=== PATIENT | female | born 1955 | race Caucasian/White ===

== ENCOUNTER 2017-04-19 22:42 | Emergency (ER) | payer BC ==
[2017-04-19 22:49] VITALS: BMI 27.1
[2017-04-19] MEDS ORDERED: NS 1000 ML 1,000 ML ONE (23:19)
[2017-04-19] MEDS ORDERED: NS 1000 ML 1,000 ML IV ONE ×2 (23:19→23:28)
--- NOTE | 2017-04-19 23:38 | DR.EXTPAIN ---
HPI - Time seen Time seen: 23:31 - PCP Primary Care Physician: VINAY - Complaint/Symptoms Chief Complaint Doctor Comments: Patient states she was walking and slipped on gravel and fell landing on her right arm and she heard it pop with severe pain in her right arm and shoulder with her being unable to elevate her right arm. She denies chest pain, SOB, cold, cough, fever or chills. she denies headache or dizziness. States she fell about 30 minutes before coming to the emergency room. She denies numbness or tingling in hand or arm. Chief Complaint:: "I FELL , SLIPPED ON GRAVEL AND WENT TO BRACE MYSELF AND MY ARM EXTENDED AND POPPED.". C/O RT ARM PAIN ABOVE ELBOW. VOMIT FROM PAIN - Nurses notes reviewed Nurses Notes Review: Yes - Source History Provided: Patient - Mode of arrival Mode of Arrival: Ambulatory - Timing Onset of Chief Complaint: 04/19/17 - Context History of: None - Associated signs and symptoms Associated Signs and Symptoms: Pain, Swelling PMH - PMH Past Medical History: Yes Past Medical History: Hypertension Past Surgical History: Yes Surgical History: , Cholecystectomy, Hysterectomy, Thyroidectomy - Family History History of Family Medical Conditions: Yes Family Medical History: Cancer - Social History Type of Tobacco Use: None Alcohol Use: None Do you use any recreational Drugs:: No Lives With: Spouse Lives Where: Home - infectious screening Have you traveled outside the country in the last 6 months?: No Isolation: Standard ROS - Review of Systems Constitutional: No Symptoms Reported. negative: See HPI, Chills, Diaphoresis, Fever, Malaise, Weakness, Irritable, Fatigue, Loss of Appetite, Other Eyes: No Symptoms Reported. negative: See HPI, Eye Pain, Blurred Vision, Tearing, Discharge, Photophobia, Diplopia, Other ENTM: No Symptoms Reported. negative: See HPI, Ear Pain, Ear Discharge, Pulling on Ears, Hearing Loss, Nose Pain, Nose Discharge, Epistaxis, Nose Congestion, Mouth Pain, Mouth Swelling, Loose Teeth, Drooling, Throat Pain, Throat Swelling, Ear Foreign Body Respiratoy: No Symptoms Reported Cardiovascular: No Symptoms Reported. negative: See HPI, Chest Pain, Edema, Palpitations, Syncope, Cyanosis, Skin Mottling, Other Gastrointestinal/Abdominal: No Symptoms Reported. negative: See HPI, Abdominal Pain, Constipation, Diarrhea, Nausea, Vomiting, Food Intolerance, Other Genitourinary: No Symptoms Reported. negative: See HPI, Discharge, Dysuria, Frequency, Hematuria, Pain, Bleeding, Other Neurological: No Symptoms Reported. negative: See HPI, Anxiety, Depressed, Emotional Problems, Headache, Numbness, Paresthesia, Pre-existing Deficit, Seizure, Tingling, Tremors, Weakness, Dizziness, Problems Walking, Speech Problem, Other Musculoskeletal: No Symptoms Reported, Right, Shoulder, Arm, Forearm ( tenderness with elevation and palpation) Integumentary: No Symptoms Reported Hematologic/Lymphatic: No Symptoms Reported. negative: See HPI, Anemia, Blood Clots, Easy Bleeding, Easy Bruising, Swollen Glands, Lymphadenopathy, Other Endocrine: No Symptoms Reported Psychiatric: No Symptoms Reported. negative: See HPI, Anxiety, Depression, Hallucinations, Excessive crying, Suicidal, Other PE - Vital Signs Vitals: Temperature 98.0 F Pulse Rate [Standing] 55 Pulse Rate [Sitting] 69 Pulse Rate [Lying] 65 Pulse Rate 60 Respiratory Rate 22 Blood Pressure [Standing] 87/50 Blood Pressure [Sitting] 131/60 Blood Pressure [Lying] 131/62 Blood Pressure 96/59 O2 Sat by Pulse Oximetry 100 - General Limitations: No Limitations General Appearance: Alert, In Distress (moderate) - Head Head Exam: Normal Inspection, Atraumatic, Normocephalic - Eyes Eye exam: Normal Appearance, PERRL, EOMI. negative: Scleral Icterus, Conjunctival Injection, Nystagmus, Miosis, Mydrasis, Periorbital Swelling, Periorbital Tenderness, Other - ENT ENT Exam: Normal Exam, Normal Oropharynx, Normal External Ear Exam, Mucous Membranes Moist, TM's Normal Bilaterally - Neck Neck Exam: Normal Inspection, Full ROM, Trachea Midline. negative: Tenderness, Meningismus, Lymphadenopathy, Thyromegaly, Other - Chest Chest Inspection: Normal Inspection, Symmetric Chest Wall Rise. negative: Tenderness, Rash, Abscess, Other - Respiratory Respiratory Exam: Normal Lung Sounds Bilat Respiratory Exam: Bilateral Clear to Auscultation - Cardiovascular Cardiovascular Exam: Regular Rate, Normal Rhythm, Irregular Rhythm - Abdominal Exam Abdominal Exam: Normal Inspection, Normal Bowel Sounds Abdominal Tenderness: RLQ. negative: RUQ, LUQ, LLQ, Epigastrium, Suprapubic, Diffuse, Mild, Moderate, Severe, Other - Extremities Extremities Exam: Normal Inspection, Full ROM, Tenderness (right shoulder, elbow and humerus tender on palpation), Normal Capillary Refill - Upper Extremities Shoulder Exam: Normal Inspection, Full ROM, Tenderness (right shoulder tender on palpation), Swelling. negative: Abrasion, Laceration, Ecchymosis, Deformity , Crepitus, Dislocation, Erythema, Tenderness over AC Joint, Other Arm Exam: Normal Inspection, Full ROM, Tenderness (right elbow and humerus tender), Swelling Elbow Exam: Normal Inspection, Full ROM, Tenderness (right elbow tender) Forearm Exam: Normal Inspection, Full ROM, Tenderness (right forearm tender on palpation) Hand Exam: Normal Inspection, Full ROM. negative: Tenderness, Swelling, Abrasion, Laceration, Ecchymosis, Skin Avulsion, Deformity, Crepitus, Erythema, Dislocation, Amputation, Nail Avulsion, Subungual Hematoma, Other Neuromotor Exam: Normal Exam Neurosensory Exam: Normal Exam Upper Ext. Vascular Exam: Capillary Refill, Radial Pulse (normal), Brachial Pulse (normal) - Lower Extremities Hip/Pelvis Exam: Normal Inspection, Full ROM. negative: Tenderness, Swelling, Abrasion, Laceration, Ecchymosis, Deformity, Crepitus, Dislocation, Erythema, External Rotation, Internal Rotation, Shortening, Pelvis Stable, Other Upper Leg Exam: Normal Inspection, Full ROM. negative: Tenderness, Swelling, Abrasion, Laceration, Ecchymosis, Deformity, Crepitus, Dislocation, Erythema, Other Knee Exam: Normal Inspection, Full ROM, Tenderness Lower Leg Exam: Normal Inspection, Full ROM. negative: Tenderness, Swelling, Abrasion, Laceration, Deformity, Ecchymosis, Crepitus, Dislocation, Erythema, Palpable Cord, Homans' Sign, Achilles Tendon Intact, Other Ankle Exam: Normal Inspection, Full ROM. negative: Tenderness, Swelling, Abrasion, Laceration, Ecchymosis, Deformity, Crepitus, Dislocation, Erythema, Tenderness over talofibular lig, Anterior Draw Sign, Other Foot/Toe Exam: Normal Inspection, Full ROM Neurovascular/Tendon Exam: Normal Capillary Refill Gait Exam: Not Tested/Not Observed, Unable to bear weight - Back Back Exam: Normal Inspection, Full ROM - Neurological Neurological Exam: Alert, Oriented X3, CN II-XII Intact. negative: Normal Gait (gait not tested) - Psychiatric Psychiatric Exam: Normal Affect, Normal Mood - Skin Skin Exam: Warm, Dry, Intact, Normal Color Type of Lesion: negative: Rash, Abscess, Laceration, Foreign Body, Bite/Sting, Abrasion, Other Distribution: negative: Generalized, Involves Palms/Soles, Head, Face, Neck, Thorax, Chest, Back, Abdomen, Genitals, LUE, LLE, RUE, RLE, Other Description: negative: Size, Tenderness, Erythematous, Swelling, Macular, Papular, Vesicular, Blisters, Cofluent, Bullous, Petechial, Purpuric, Urticarial , Crusting, Discharge, Fluctuant, Indurated, Other Course - Consultation Called: :11 Call Returned: 02:11 (Dr. Salgado will see patient in office; recommend shoulder immobilizer) - Education/Counseling Education/Counseling: Patient, Family Educated On: Treatment, Diagnosis, Needs for Follow Up ROR - Labs Reviewed Laboratory Results Reviewed?: Yes (all labs and x-ray results reviewed and discussed with no) Result Diagrams: 04/19/17 23:40 04/19/17 23:40 Laboratory: WBC 9.3 X10^3/uL (3.6-10.0) 04/19/17 23:40 RBC 4.00 X10^6/uL (3.5-5.4) 04/19/17 23:40 Hgb 12.1 g/dL (12.0-16.0) 04/19/17 23:40 Hct 35.6 % (36.0-47.0) L 04/19/17 23:40 MCV 89.0 fL (80.0-100.0) 04/19/17 23:40 MCH 30.3 pg (27.0-34.0) 04/19/17 23:40 MCHC 34.0 g/dL (33.0-35.0) 04/19/17 23:40 RDW 13.5 % (11.6-16.5) 04/19/17 23:40 Plt Count 319 X10^3/uL (150.0-450.0) 04/19/17 23:40 MPV 7.8 fL (7.4-11.0) 04/19/17 23:40 Neut % 58.5 % (42.0-75.0) 04/19/17 23:40 Lymph % 32.2 % (21.0-51.0) 04/19/17 23:40 [place] % 5.5 % (0.0-13.0) 04/19/17 23:40 Eos % 3.1 % (0.9-2.9) H 04/19/17 23:40 Baso % 0.7 % (0.2-1.0) 04/19/17 23:40 Neut # 5.4 x10^3/uL (2.2-4.8) H 04/19/17 23:40 Lymph # 3.0 X10^3/uL (1.3-2.9) H 04/19/17 23:40 [place] # 0.5 x10^3/uL (0.3-0.8) 04/19/17 23:40 Eos # 0.3 x10^3/uL (0.0-0.2) H 04/19/17 23:40 Baso # 0.1 X10^3/uL (0.0-0.1) 04/19/17 23:40 Absolute Nucleated RBC 0.0 /100WBC 04/19/17 23:40 INR Target Range - 04/19/17 23:40 INR 0.99 (0.8-1.3) 04/19/17 23:40 PTT 24.7 SECONDS (22.9-36.5) 04/19/17 23:40 PTT Comment - 04/19/17 23:40 Sodium 141 mmol/L (136-145) 04/19/17 23:40 Corrected Sodium 143 mmol/L (136-145) 04/19/17 23:40 Potassium 3.2 mmol/L (3.5-5.1) L 04/19/17 23:40 Chloride 104 mmol/L (98-107) 04/19/17 23:40 Carbon Dioxide 26.0 mmol/L (21-32) 04/19/17 23:40 BUN 19 mg/dL (7-18) H 04/19/17 23:40 Creatinine 0.91 mg/dL (0.55-1.02) 04/19/17 23:40 Est GFR (MDRD) Af Amer > 60 (>60) 04/19/17 23:40 Est GFR (MDRD) Non-Af > 60 (>60) 04/19/17 23:40 Glucose 164 mg/dL (65-99) H 04/19/17 23:40 Calcium 9.4 mg/dL (8.5-10.1) 04/19/17 23:40 Corrected Calcium 10.2 mg/dL (8.5-10.1) H 04/19/17 23:40 Magnesium 1.7 mg/dL (1.7-2.9) 04/19/17 23:40 Total Bilirubin 0.20 mg/dL (0.2-1.0) 04/19/17 23:40 AST 29 Units/L (15-37) 04/19/17 23:40 ALT 40 Units/L (12-78) 04/19/17 23:40 Alkaline Phosphatase 107 Units/L (46-116) 04/19/17 23:40 Creatine Kinase 67 Units/L (26-192) 04/19/17 23:40 CK-MB (CK-2) < 1.0 ng/mL (0-4.0) 04/19/17 23:40 CK/CKMB % Calc 1.5 % (<4) 04/19/17 23:40 Troponin I < 0.02 ng/mL (0-1.5) 04/19/17 23:40 Total Protein 6.4 g/dL (6.4-8.2) 04/19/17 23:40 Albumin 3.0 g/dL (3.4-5.0) L 04/19/17 23:40 Globulin 3.4 g/dL (2.5-4.5) 04/19/17 23:40 Albumin/Globulin Ratio 0.9 Ratio (1.1-2.1) L 04/19/17 23:40 - XRAY XRAY Interpreted by: Radiologist (Right Humerus: Trasverse displaced fracture proximal humerus at surgical neck) XRAY Findings: Right forearm: No acuate radiographic abnormality identified - EKG Rate: 60 [place]: Normal Rhythm: NSR Block: None Hypertrophy: None ST: Normal, Nonsp - Diagnosis Discharge Problem: Hypotension, Hyperglycemia, Fall, Contusion of right arm Humerus head fracture Qualifiers: Encounter type: initial encounter Laterality: right - Discharge Plan Disposition: 01 HOME, SELF-CARE Condition: Stable Prescriptions: Cyclobenzaprine HCl [FLEXERIL 10 MG *] 10 mg PO BID #14 tab Hydrocodone-Acet 7.5 mg/325 mg [[place] 7.5/325 mg Tab] 1 tab PO Q6H PRN #28 tab PRN Reason: Pain - Follow ups/Referrals Follow ups/Referrals: [facility],None [Primary Care Provider] - 3 days ASHLEY SALGADO [STAFF PHYSICIAN] - 3 days - Instructions Instructions: Shoulder Fracture (Proximal Humerus or Glenoid)-SportsMed, Humerus Fracture With Rehab-Sports[facility], Fall Prevention in the Home, [id number] , Shoulder Fracture
[2017-04-19 23:52] LABS: BASOPHILS # (AUTO) 0.1 X10^3/uL (0.0-0.1); BASOPHILS % (AUTO) 0.7 % (0.2-1.0); EOSINOPHILS # (AUTO) 0.3 x10^3/uL (0.0-0.2); EOSINOPHILS % (AUTO) 3.1 % (0.9-2.9); HEMATOCRIT 35.6 % (36.0-47.0); HEMOGLOBIN 12.1 g/dL (12.0-16.0); LYMPHOCYTES % (AUTO) 32.2 % (21.0-51.0); MEAN CORPUSCULAR HEMOGLOBIN 30.3 pg (27.0-34.0); MEAN PLATELET VOLUME 7.8 fL (7.4-11.0); MONOCYTES # (AUTO) 0.5 x10^3/uL (0.3-0.8); MONOCYTES % (AUTO) 5.5 % (0.0-13.0); NEUTROPHILS # (AUTO) 5.4 x10^3/uL (2.2-4.8); NEUTROPHILS % (AUTO) 58.5 % (42.0-75.0); PLATELET COUNT 319 X10^3/uL (150.0-450.0); RED CELL DISTRIBUTION WIDTH 13.5 % (11.6-16.5); WHITE BLOOD COUNT 9.3 X10^3/uL (3.6-10.0)
[2017-04-20 00:11] LABS: BLOOD UREA NITROGEN 19 mg/dL (7-18); CALCIUM 9.4 mg/dL (8.5-10.1); CHLORIDE 104 mmol/L (98-107); COR NA(FOR HYPERGLY) 143 mmol/L (136-145); CREATININE 0.91 mg/dL (0.55-1.02); SODIUM 141 mmol/L (136-145); TROPONIN I < 0.02 ng/mL (0-1.5); eGFR BLACK RACES > 60 (>60); eGFR NON BLACK RACES > 60 (>60)
[2017-04-20 00:15] LABS: ALANINE AMINOTRANSFERASE 40 Units/L (12-78); ALKALINE PHOSPHATASE 107 Units/L (46-116); ASPARTATE AMINO TRANSFERASE 29 Units/L (15-37); CKMB % 1.5 % (<4); COR CA(FOR HYPOALB) 10.2 mg/dL (8.5-10.1); CREATINE KINASE 67 Units/L (26-192); CREATINE KINASE MB < 1.0 ng/mL (0-4.0); MAGNESIUM 1.7 mg/dL (1.7-2.9); TOTAL PROTEIN 6.4 g/dL (6.4-8.2)
[2017-04-20] MEDS ORDERED: K-LYTE EFFERVESCENT ONE (00:33)
[2017-04-20] MEDS ORDERED: MORPHINE SULFATE INJ 2 MG INJ IVP ONE ×2 (00:33→02:10)
[2017-04-20] MEDS ORDERED: MORPHINE SULFATE INJ 2 MG INJ ONE ×2 (00:34→02:09)
[2017-04-20] MEDS ORDERED: K-LYTE EFFERVESCENT PO ONE (00:40)
--- NOTE | 2017-04-20 00:45 | RAD ---
Two views of the right humerus Indication: Fall with shoulder pain. Findings: There is a transversely oriented, minimally displaced fracture of the proximal humerus cent ered at the surgical neck. There is fracture extends into a more longitudinal oriented fracture at th e right greater tuberosity with minimal displacement of the tuberosity fracture fragment. There is qu estionable extension of fracture into the lesser tuberosity however this is less well visualized. Gle nohumeral articulation appears anatomic. Mild AC joint osteoarthrosis without acute fracture. No disp laced right-sided rib fracture. The remaining right arm demonstrates no radiographic abnormality. Impression: See above. Reported By:
--- NOTE | 2017-04-20 00:45 | RAD ---
Two views of the right shoulder Indication: Fall with shoulder pain. Findings: There is a transversely oriented, minimally displaced fracture of the proximal humerus cent ered at the surgical neck. There is fracture extends into a more longitudinal oriented fracture at th e right greater tuberosity with minimal displacement of the tuberosity fracture fragment. There is qu estionable extension of fracture into the lesser tuberosity however this is less well visualized. Gle nohumeral articulation appears anatomic. Mild AC joint osteoarthrosis without acute fracture. No disp laced right-sided rib fracture. Impression: See above. Reported By:
--- NOTE | 2017-04-20 00:46 | RAD ---
Two views of the right forearm Indication: Forearm pain after fall Findings: There is no fracture for dislocation within the right forearm. No localizing soft tissue sw elling. There is grossly anatomic alignment of the right wrist and elbow joint. Impression: No acute radiographic abnormality identified within the right forearm. Reported By:
[2017-04-20 02:27] VITALS: BP 145/84
== END 2017-04-20 02:31 | disposition home or self-care (01) ==
LOC: ER 22:58
DX: S42.201A Unspecified fracture of upper end of right humerus, initial encounter for closed fracture (principal); S50.11XA Contusion of right forearm, initial encounter; I95.9 Hypotension, unspecified; R73.9 Hyperglycemia, unspecified; W19.XXXA Unspecified fall, initial encounter; Y92.9 Unspecified place or not applicable
CPT/HCPCS: 36415; 73030; 73060; 73090; 80053; 82550; 82553; 83735; 84484; 85025; 85610; 85730; 93005; 93010; 96365; 96367; 96374; 96375; 99283; A4222; J2270